=== PATIENT | male | born 1995 | race Caucasian/White ===

== ENCOUNTER 2020-02-01 13:32 | Day surgery (SDC) | payer OTHER ==
[~2020-02-01 13:32] MED LIST: Acetaminophen 500 MG TAB PO PRN; Acetaminophen 500 MG TAB PO SCH; INFLIXIMAB IVPB SCH; SODIUM CHLORIDE 0.9% IVPB SCH; Sodium Chloride 0.9% 1,000 ML IV SCH; diphenhydrAMINE 50 MG/ML VIAL IVP SCH
[2020-02-01] MEDS ORDERED: Sodium Chloride 0.9% 20 ML ONE (14:06)
[2020-02-01 15:11] VITALS: BP 115/62; TEMP 97.6
== END 2020-02-01 16:57 | disposition home or self-care (01) ==
LOC: ONC/OP 13:32
PROVIDERS: ATTEND Internal Medicine
DX: K51.90 Ulcerative colitis, unspecified, without complications (principal)
CPT/HCPCS: 96375; 96413; 96415; J1200; J1745; J7050

== ENCOUNTER 2020-03-01 08:25 | Day surgery (SDC) | payer OTHER ==
[~2020-03-01 08:25] MED LIST changes: -Acetaminophen 500 MG TAB PO PRN; -Acetaminophen 500 MG TAB PO SCH; -INFLIXIMAB IVPB SCH; -SODIUM CHLORIDE 0.9% IVPB SCH; -Sodium Chloride 0.9% 1,000 ML IV SCH; +Ustekinumab 520 MG in Sodium Chloride 0.9% 250 ML 250 ML IV SCH; -diphenhydrAMINE 50 MG/ML VIAL IVP SCH
[2020-03-01] MEDS ORDERED: Acetaminophen 500 MG TAB PO PRN (08:27)
[2020-03-01] MEDS ORDERED: Sodium Chloride 0.9% 20 ML ONE (08:30)
[2020-03-01] MEDS ORDERED: Ustekinumab 520 MG in Sodium Chloride 0.9% 250 ML 146 ML IV SCH (08:30)
[2020-03-01 08:35] VITALS: BP 129/68; TEMP 97.8
== END 2020-03-01 10:57 | disposition home or self-care (01) ==
LOC: ONC/OP 08:25
PROVIDERS: ATTEND Internal Medicine
DX: K51.90 Ulcerative colitis, unspecified, without complications (principal)
CPT/HCPCS: 96413; J3358; J7050